=== PATIENT | female | born 1955 | race American Indian/Alaskan Native ===

== ENCOUNTER 2017-09-27 13:44 | Outpatient (CLI) | payer BC ==
--- NOTE | 2017-09-28 12:10 | Ultrasound Report ---
THYROID ULTRASOUND:09/27/17 13:44:00 CLINICAL: Goiter. FINDINGS: High-resolution ultrasound demonstrated and enlarged multinodular thyroid. The right lobe measures 4.5 x 2.7 x 3.8cm. The left lobe measures 5.5 x 3.4 x 4.7 cm. The isthmus measures 6 mm AP thickness. Both thyroid lobes are diffusely nodular with numerous solid nodules and numerous cysts of varying sizes and shapes. The largest right nodule is a lower pole solid heterogeneous nodule measuring 1.9 x 1.8 x 1.7 cm. A similar heterogeneous solid nodule in the upper pole on the right measures 1.5 x 1.3 x 1.1 cm. Another heterogeneous solid nodule of the right upper pole measures 1.0 x 1.0 x 0.9 cm. A heterogeneous solid left lower pole nodule measures 2.6 x 1.5 x 1.6 cm. A heterogeneous solid left upper pole nodule measures 1.6 x 1.4 x 1.3 cm. IMPRESSION: Multinodular goiter with too numerous to count bilateral solid nodules and cysts. None of the nodules have suspicious features. The overall size of the thyroid is reduced compared to the prior exam and individual nodules measure smaller than previously.
== END 2017-09-27 13:45 | disposition home or self-care (01) ==
LOC: SPVWC 13:44
PROVIDERS: ATTEND Family Medicine Adult Medicine
DX: E04.2 Nontoxic multinodular goiter (principal)
CPT/HCPCS: 76536